=== PATIENT | female | born 1955 | race Caucasian/White ===

== ENCOUNTER 2021-04-10 07:12 | Day surgery (SDC) | payer MEDICARE, MEDICAID ==
[2021-04-06 13:35] LABS: BASOPHILS # (AUTO) 0.1 X10'3 (0-0.2); BASOPHILS % (AUTO) 1.2 % (0-1); EOSINOPHILS # (AUTO) 0.1 X10'3 (0-0.9); EOSINOPHILS % (AUTO) 2.1 % (0-6); LYMPHOCYTES # (AUTO) 1.7 X10'3 (1.1-4.8); LYMPHOCYTES % (AUTO) 30.4 % (21-51); MEAN CORPUSCULAR HEMOGLOBIN 32.1 PG (27.0-31.0); MEAN CORPUSCULAR HGB CONC 34.5 g/dL (33.0-36.5); MEAN CORPUSCULAR VOLUME 93.2 FL (78-98); MEAN PLATELET VOLUME 8.5 FL (7.4-10.4); MONOCYTES # (AUTO) 0.5 X10'3 (0-0.9); MONOCYTES % (AUTO) 8.9 % (2-12); NEUTROPHILS # (AUTO) 3.3 X10'3 (1.8-7.7); NEUTROPHILS % (AUTO) 57.4 % (42-75); PRE OP HEMATOCRIT 42.5 % (35.0-45.0); PRE OP HEMOGLOBIN 14.6 g/dL (12.0-16.0); PRE OP PLATELET COUNT 246 X10'3 (140-440); RED BLOOD COUNT 4.56 X10'6 (4.20-5.60); RED CELL DISTRIBUTION WIDTH 12.8 % (11.5-14.5)
[2021-04-06 13:54] LABS: ALBUMIN 3.6 G/DL (3.4-5.0); ALBUMIN/GLOBULIN RATIO 1.2 (1.1-1.5); ALKALINE PHOSPHATASE 83 IU/L (46-116); BLOOD UREA NITROGEN 24 MG/DL (7-18); CALCIUM 8.3 MG/DL (8.5-10.1); CHLORIDE 111 MMOL/L (99-107); CREATININE 1.09 MG/DL (0.40-0.90); PRE OP ALT 22 U/L (30-65); PRE OP ANION GAP 11 (8-16); PRE OP AST 19 U/L (10-37); PRE OP BILIRUB, TOTAL 0.3 MG/DL (0.0-1.0); PRE OP GLUCOSE 94 MG/DL (70-104); PRE OP POTASSIUM 3.4 MMOL/L (3.4-5.1); PRE OP SODIUM 146 MMOL/L (135-145); TOTAL CARBON DIOXIDE 23.9 MMOL/L (24-32); TOTAL PROTEIN 6.6 G/DL (6.4-8.2); eGFR 50 ML/MIN
[2021-04-10] VITALS (7 sets, daily range): BP systolic 137–170; BP diastolic 63–86
[~2021-04-10] VITALS: Ht 157.5 cm; Wt 52.2 kg
[~2021-04-10 07:12] MED LIST: BUPIVAcaine/PF 2.5 mg/ml (0.25%) 30ml vial ONE; BUPIVAcaine/PF 2.5mg/ml (0.25%) 10ml vial ONE; CHOL500049 PO; FERR236T3 PO; IBUP-1986 PO; MULT-1180 PO; TOLT2CAP21 PO; VITA400T10 PO; cefazolin/dext.iso 2gm/50ml 50 ML IV ONE; famotidine 20mg tablet PO ONE; ringers solution, lacted 1,000 ML IV SCH
[2021-04-10] MEDS ORDERED: ringers solution, lacted 1,000 ML IV SCH (08:15)
[2021-04-10] MEDS ORDERED: proCHLORperazine 10 MG/2 ml inj IV PRN (08:15)
[2021-04-10] MEDS ORDERED: morphine 2 MG/ML inj. syringe IV PRN (08:15)
[2021-04-10] MEDS ORDERED: meperidine/PF 25mg/ml syringe IV PRN ×3 (08:15)
[2021-04-10] MEDS ORDERED: morphine 4 MG/ML inj SYRINge IV PRN (08:15)
[2021-04-10] MEDS ORDERED: ondansetron/PF 4mg/2ml inj IV PRN (08:15)
[2021-04-10] MEDS ORDERED: aprepitant 40mg capsule PO ONE (08:46)
[2021-04-10] MEDS ORDERED: propofol inj 20 ML IV ONE (09:42)
[2021-04-10] MEDS ORDERED: LIDOcaine 2% (20mg/ml) 5ml vial ONE (09:42)
[2021-04-10] MEDS ORDERED: midazolam 1 mg/ML 2ml injection ONE (09:42)
[2021-04-10] MEDS ORDERED: fentaNYL/PF 50MCG/1 ML 2ML syringe ONE (09:42)
[2021-04-10] MEDS ORDERED: rocuronium 10mg/ml inj IV ONE (10:28)
[2021-04-10] MEDS ORDERED: ketorolac trometh. 30mg/ml inj. ONE (11:29)
--- NOTE | 2021-04-10 11:43 | NUR ---
Received from OR via [facility] , accompanied by Anesthesiologist AZRA and report given by Anesthesiolgist. PATIENT WITH 20G PIV RUNNING LR AT 100. PATIENT WITH 20G PIV IN LEFT UE RUNNING LR AT 100. PATIENT WITH 100% SATURATIONS WITH 10L MASK. 3 ABDOMINAL LAP SITES THAT ARE CDI. DENIES PAIN. Addendum: 04/10/21 at 1153 by Bruce Flaherty RN, RN Amended: Links added.
== END 2021-04-10 12:43 | disposition home or self-care (01) ==
LOC: PAS 07:12
PROVIDERS: ATTEND Obstetrics & Gynecology
DX: N95.0 Postmenopausal bleeding (principal); N84.0 Polyp of corpus uteri; N73.6 Female pelvic peritoneal adhesions (postinfective); N83.312 Acquired atrophy of left ovary; N83.311 Acquired atrophy of right ovary; Z85.3 Personal history of malignant neoplasm of breast; Z79.899 Other long term (current) drug therapy; Z20.822 Contact with and (suspected) exposure to COVID-19; Z90.13 Acquired absence of bilateral breasts and nipples; Z98.890 Other specified postprocedural states; Z88.5 Allergy status to narcotic agent; Z87.891 Personal history of nicotine dependence
CPT/HCPCS: 36415; 49320; 58558; 80053; 82948; 85025; 93005; A6258; C1758; J1885; J2001; J2250; J2270; J2405; J2704; J3010; J3490; J7120; J8501; U0003; U0005; Z7506; Z7508; Z7512; 88305; A4355; A4618; A6402; A7000